=== PATIENT | male | born 1965 | race Caucasian/White ===

== ENCOUNTER 2024-06-28 06:04 | Day surgery (SDC) | payer BC ==
[~2024-06-28] VITALS: Ht 182.9 cm; Wt 121.7 kg
[~2024-06-28 06:04] MED LIST: Robaxin750 MG PO
[2024-06-28] MEDS ORDERED: Tranexamic Acid 100 ML IV ONE (06:15)
[2024-06-28] MEDS ORDERED: CeFAZolin Sodium 2,000 MG VIAL ONE (06:16)
[2024-06-28] MEDS ORDERED: CeFAZolin Sodium 3,000 MG in NS 100 ML IV SCH (06:25)
[2024-06-28] MEDS ORDERED: ATOR40TA (06:28)
[2024-06-28] MEDS ORDERED: NEURONTIN300 MG PO (06:28)
[2024-06-28] MEDS ORDERED: FARXIGA10 MG PO (06:29)
[2024-06-28] MEDS ORDERED: CHLO25B PO (06:29)
[2024-06-28] MEDS ORDERED: ESCI20 PO (06:29)
[2024-06-28] MEDS ORDERED: IRBESARTAN300 M3 PO (06:29)
[2024-06-28] MEDS ORDERED: LAMICTAL200 MG PO (06:29)
[2024-06-28] MEDS ORDERED: Aspir 8181 MG PO (06:30)
[2024-06-28] MEDS ORDERED: OXYCODONE-ACET1 EAC3 PO (06:30)
[2024-06-28] MEDS ORDERED: NOVOLOG100 UNIT/2 INJ (06:31)
--- NOTE | 2024-06-28 06:41 | NUR ---
06/28/24 0641 Kim Mark INSULIN PUMP TAPED ON LEFT ABDOMEN, CONNECTS TO PHONE, PHONE ON AIRPLANE MODE. PT NEEDED GLUCOSE TABS AT 0545 FOR LOW BLOOD SUGAR,73. AT 0630 PER PT IT WAS 155. SPINAL CORD STIMULATOR ON LEFT LOWER BACK
[2024-06-28] MEDS ORDERED: Lactated Ringer's 1,000 ML IV ONE ×2 (06:57→11:05)
[2024-06-28] MEDS ORDERED: FentaNYL Citrate 50 MCG/ML 2 ML Injection ONE (07:04)
[2024-06-28] MEDS ORDERED: Rocuronium Bromide 10 MG/ML 5ML Injection IV ONE (07:04)
[2024-06-28] MEDS ORDERED: Phenylephrine HCl 100 MCG/ML-NS 10MLSYR (1MG/10ML) ONE (07:04)
[2024-06-28] MEDS ORDERED: Midazolam HCl 1MG / ML 2ML Vial ONE (07:04)
[2024-06-28] MEDS ORDERED: propofoL 20 ML IV ONE ×2 (07:04→07:41)
[2024-06-28] MEDS ORDERED: Dexamethasone Sod Phos 10 MG/ML 1ML VIAL ONE (07:04)
[2024-06-28] MEDS ORDERED: Ondansetron HCl 2 MG / ML 2ML Vial ONE (07:04)
[2024-06-28] MEDS ORDERED: Lidocaine 1%-Epineph 1:100000 20 ML MDV INJ ONE (08:07)
[2024-06-28] MEDS ORDERED: HYDROmorphone HCl/Pf 1MG SYR ONE ×3 (08:13→10:21)
--- NOTE | 2024-06-28 08:15 | NUR ---
06/28/24 0814 Petrona Culver NOTED OPEN AREAS TOPTS SKIN FROM PEROP HAIR REMOVAL, NOTED SCABS TO PTS RIGHT FOREARM, DR PIERRE AWARE
[2024-06-28] MEDS ORDERED: Glycopyrrolate 0.2 MG/ML 5ML VIAL ONE (09:08)
[2024-06-28] MEDS ORDERED: Sugammadex Sodium 200 MG/2ML SDV (100 MG/ML) ONE (09:15)
[2024-06-28 10:45] VITALS: BP 164/88
[2024-06-28] MEDS ORDERED: OxyCODONE HCL 5 MG TAB ONE (10:46)
== END 2024-06-28 11:06 | disposition home or self-care (01) ==
LOC: ORSCSDS 06:04
PROVIDERS: Orthopaedic Surgery Sports Medicine
PROC: 0RNJ4ZZ Release Right Shoulder Joint, Percutaneous Endoscopic Approach (ICD-10-PCS; principal; 2024-06-28 07:30)
PROC: 0LQ14ZZ Repair Right Shoulder Tendon, Percutaneous Endoscopic Approach (ICD-10-PCS; principal; 2024-06-28 07:30)
DX: M25.511 Pain in right shoulder (principal); Z79.82 Long term (current) use of aspirin; I10 Essential (primary) hypertension; G47.33 Obstructive sleep apnea (adult) (pediatric); E10.21 Type 1 diabetes mellitus with diabetic nephropathy; E66.9 Obesity, unspecified; Z68.36 Body mass index [BMI] 36.0-36.9, adult; F17.210 Nicotine dependence, cigarettes, uncomplicated; Z79.4 Long term (current) use of insulin; Z79.899 Other long term (current) drug therapy
CPT/HCPCS: 82947; A9270; C1713; J0690; J1100; J1171; J2250; J2371; J2405; J2704; J3010

== ENCOUNTER 2024-10-14 19:26 | Observation (INO) | payer BC ==
[~2024-10-14] VITALS: Ht 182.9 cm; Wt 121.8 kg
[~2024-10-14 19:26] MED LIST changes: +ATOR40TA PO; +Aspir 8181 MG PO; +CHLO25B PO; +ESCI20 PO; +FARXIGA10 MG PO; +IRBESARTAN300 M3 PO; +LAMICTAL200 MG PO; +NEURONTIN300 MG PO; +NOVOLOG100 UNIT/2 INJ; +OXYCODONE-ACET1 EAC3 PO
[2024-10-14 19:49] LABS: BASOPHILS ABSOLUTE AUTO 0.09 K/mm3 (0.00-0.23); BASOPHILS PERCENT AUTO 1 % (0-2); EOSINOPHILS ABSOLUTE AUTO 0.25 K/mm3 (0.00-0.68); EOSINOPHILS PERCENT AUTO 3 % (0-6); Hematocrit 48.8 % (37.0-53.0); Hemoglobin 16.5 g/dL (13.5-17.5); IMMATURE GRAN ABSOLUTE AUTO 0.02 K/mm3 (0.00-0.10); IMMATURE GRAN PERCENT AUTO 0 % (0-1); LYMPHOCYTES ABSOLUTE AUTO 2.78 K/mm3 (0.84-5.20); LYMPHOCYTES PERCENT AUTO 31 % (21-46); MONOCYTES ABSOLUTE AUTO 0.89 K/mm3 (0.16-1.47); MONOCYTES PERCENT AUTO 10 % (4-13); Mean Corpuscular HGB 29.2 pg (26.0-34.0); Mean Corpuscular HGB Conc 33.8 g/dL (31.5-36.5); Mean Corpuscular Volume 86 fL (80-100); Mean Platelet Volume 10.6 fL (9.1-12.4); NEUTROPHILS PERCENT AUTO 55 % (41-73); Platelet Count 183 K/mm3 (150-400); RDW Coefficient Variation 13.6 % (11.7-14.2); RDW Standard Deviation 43.6 fL (35.1-46.3); Red Blood Cell Count 5.66 M/mm3 (4.30-5.90); White Blood Cell Count 9.03 K/mm3 (4.00-11.30)
[2024-10-14 20:15] LABS: Albumin/Globulin Ratio 1.2 (0.8-1.8); Bilirubin, Total 0.5 mg/dL (0.1-1.0); Bun/Creatinine Ratio 26.8 (12.0-20.0); Calcium, Blood 8.7 mg/dL (8.5-10.1); Creatinine, Blood 1.38 mg/dL (0.60-1.20); Globulin, Blood 3.4 g/dL (2.2-4.0); Potassium, Blood 3.7 mmol/L (3.5-5.5); Total Protein, Blood 7.4 g/dL (6.4-8.2)
[2024-10-14] MEDS ORDERED: Ondansetron HCl 2 MG / ML 2ML Vial IV ONE (22:10)
[2024-10-14] MEDS ORDERED: FentaNYL Citrate 50 MCG/ML 2 ML Injection IV ONE (22:10)
[2024-10-14] MEDS ORDERED: Clopidogrel Bisulfate 75 MG Tab PO ONE (23:25)
[2024-10-14] MEDS ORDERED: Morphine Sulfate 4 MG/1 ML Injection IV ONE (23:25)
[2024-10-14] MEDS ORDERED: Ondansetron 4 MG TAB PO PRN (23:45)
[2024-10-15] MEDS ORDERED: Aspirin 81 MG TabEC PO SCH (00:14)
[2024-10-15] MEDS ORDERED: FentaNYL Citrate 50 MCG/ML 2 ML Injection IV PRN (00:30)
[2024-10-15 01:35] VITALS: BP 138/85
--- NOTE | 2024-10-15 02:51 | NUR ---
ADMIT NOTE FOR 10/15/24 0130 REPORT WAS RECEIVED FROM THE ER NURSE. PT WAS BROUGHT DOWN ON THE GURNEY AND WAS ABLE TO STAND AND TRANSFER TO THE BED. PT WAS ORIENTED TO ROOM AND STAFF. PT ALERT ORIENTED ABLE TO VERBALIZE NEEDS. GETS UP AD MIKY IN THE ROOM AND AMBULATES TO THE BATHROOM. NEURO CHECKS ARE GOOD EXCEPT THAT HE HAS LT FACIAL DROOP. NO FACIAL NUMBNESS AT THIS TIME. SPEECH IS GOOD. HE DID STATE THAT HIS SPEECH DOES GET WORSE TIME GOES BY. HE DID A BEDSIDE SWALLOW EVAL AND HAD NO PROBLEMS WITH SWALLOWING. REMAINS ON A CONTINUOUS PULSE OX SATTING AT 94% ON RA. VSS. HES RESTING IN BED AT THIS TIME WITH CALL LIGHT IN REACH
[2024-10-15 04:19] VITALS: BP 119/77
--- NOTE | 2024-10-15 04:44 | NUR ---
SHIFT SUMMARY PT WAS ADMITTED FROM THE ER AT 0130 WITH DX OF CVA R/O. HES ALERT ORIENTED X4 ABLE TO VERBALIZE NEEDS CALLS APPROPRIATELY. C/O HEADACHE MEDICATED WITH FENTANYL WITH GOOD RELIEF. HE REMAINS NPO BUT DID PASS HIS BEDSIDE SWALLOW TEST SO HES DRINKING WATER WITH NO PROBLEMS SWALLOWING. REMAINS ON TELEMTERY AT [facility] AT 68. HIS NEURO CHECKS ARE GOOD EXCEPT HIS LT SIDE FACIAL DROOP. HE REMAINS ON A CONTINUOUS PULSE OX. HE WEARS A CPAP AT NIGHT AT HOME BUT HE DIDNT BRING IT IN. FS DONE Q6HR. HE AMBULATES AD MIKY IN HIS ROOM WITH NO PROBLEMS. RESTING IN BED AT THIS TIME WITH CALL LIGHT IN REACH
[2024-10-15] MEDS ORDERED: Insulin Regular 100 UNIT/ML 10ML Vial SC SCH (06:00)
[2024-10-15 06:02] LABS: International Normalized Ratio 0.96; Prothrombin Time Results 10.3 Sec (9.7-11.5)
[2024-10-15 06:14] LABS: Calcium, Blood 8.5 mg/dL (8.5-10.1); Creatinine, Blood 1.03 mg/dL (0.60-1.20); Potassium, Blood 3.8 mmol/L (3.5-5.5)
[2024-10-15 06:27] LABS: Free Thyroxine 1.08 ng/dL (0.70-1.60)
[2024-10-15 06:29] LABS: Thyroid Stimulating Hormone 2.9 uIU/mL (0.360-4.800)
[2024-10-15 07:08] VITALS: BP 140/78
[2024-10-15] MEDS ORDERED: Enoxaparin 40 MG/0.4 ML SYR SC SCH (09:00)
[2024-10-15] MEDS ORDERED: Atorvastatin 40 MG Tab PO SCH (09:00)
[2024-10-15] MEDS ORDERED: Misc. Tablet PO SCH (09:00)
[2024-10-15] MEDS ORDERED: Clopidogrel Bisulfate 75 MG Tab PO SCH (09:00)
[2024-10-15] MEDS ORDERED: LamoTRIgine 100 MG Tab PO SCH (09:00)
[2024-10-15] MEDS ORDERED: Citalopram Hydrobromide 20 MG Tab PO SCH (09:00)
[2024-10-15] MEDS ORDERED: Morphine Sulfate 10 MG/ML 1MLSYR IV PRN (10:20)
[2024-10-15 12:17] VITALS: BP 136/86
[2024-10-15] MEDS ORDERED: Peg 400/Hypromellose/Glycerin 15 DROP/ML BTL LEFTEYE PRN (15:50)
--- NOTE | 2024-10-15 15:59 | NUR ---
PT HEADACHE UNRESOVED BY CURRENT MEDICATION REGIMEN. PT GIVEN 5 MG MORPHINE IV. WITH NO RELIEF. DR. MAK NOTIFIED. AWAITING ORDERS
--- NOTE | 2024-10-15 16:08 | NUR ---
NO CHANGES IN PT NEURO STATUS THIS SHIFT. PT HAS LEFT SIDE FACIAL DROOP, UNABLE TO CLOSE LEFT EYE UNABLE TO TASTE AND SMELL. HEADACHE REMAINS 8/10 PAIN. MD AWARE. STRENGTH EQUAL IN BUE/BLE. INDEPENDENT IN THE ROOM, ABLE TO EXPRESS NEEDS, EYE DROPS ORDERED FOR LEFT EYE, PT GIVEN EYE PATCH TO USE NEEDED. NEURO CHECKS Q 4HRS.
[2024-10-15] MEDS ORDERED: HYDROmorphone HCl 0.5 MG/0.5 ML SYR IV PRN (16:10)
[2024-10-15 16:29] VITALS: BP 128/82
--- NOTE | 2024-10-15 17:30 | NUR ---
PT TREATED WITH DILAUDID 1MG IV. PT REPORTS RELIEF IN HEADACHE PAIN.
[2024-10-15 22:01] VITALS: BP 139/76
[2024-10-16 00:16] VITALS: BP 136/82
[2024-10-16] MEDS ORDERED: Albuterol 2.5 MG/3 ML VIAL INH PRN (01:40)
--- NOTE | 2024-10-16 03:42 | NUR ---
SHIFT SUMMARY PT ALERT ORIENTED ABLE TO VERBALIZE NEEDS GETS UP AD MIKY IN HIS ROOM. HE REMAINS WITH LT SIDE FACIAL DROOP AND HAS A HARD TIME CLOSING HIS LT EYE. HE C/O HEADACHE MEDICATED WITH DILAUDID WITH GOOD RESULTS. HE WAS C/O FEELING WHEEZY.FS DONE Q6HR WAS 136. NO COVERAGE WAS NEEDED. HE HAS HIS OWN INSULIN PUMP. CONTINUES ON A CONINUOUS PULSE OX SATTING AROUND 93% ON RA. HE HAS A ORDERED TO HAVE A ECHO DONE IN THE MORNING. RESTING IN BED AT THIS TIME WITH CALL LIGHT IN REACH
[2024-10-16 04:54] VITALS: BP 127/80
[2024-10-16 05:27] LABS: BASOPHILS PERCENT AUTO 1 % (0-2); EOSINOPHILS ABSOLUTE AUTO 0.26 K/mm3 (0.00-0.68); EOSINOPHILS PERCENT AUTO 3 % (0-6); Hematocrit 46.3 % (37.0-53.0); Hemoglobin 15.8 g/dL (13.5-17.5); IMMATURE GRAN ABSOLUTE AUTO 0.03 K/mm3 (0.00-0.10); IMMATURE GRAN PERCENT AUTO 0 % (0-1); LYMPHOCYTES ABSOLUTE AUTO 2.59 K/mm3 (0.84-5.20); LYMPHOCYTES PERCENT AUTO 34 % (21-46); MONOCYTES ABSOLUTE AUTO 0.75 K/mm3 (0.16-1.47); MONOCYTES PERCENT AUTO 10 % (4-13); Mean Corpuscular HGB 29.4 pg (26.0-34.0); Mean Corpuscular HGB Conc 34.1 g/dL (31.5-36.5); Mean Corpuscular Volume 86 fL (80-100); Mean Platelet Volume 10.9 fL (9.1-12.4); NEUTROPHILS ABSOLUTE AUTO 3.91 K/mm3 (1.96-9.15); NEUTROPHILS PERCENT AUTO 51 % (41-73); Platelet Count 166 K/mm3 (150-400); RDW Coefficient Variation 13.6 % (11.7-14.2); Red Blood Cell Count 5.37 M/mm3 (4.30-5.90); White Blood Cell Count 7.64 K/mm3 (4.00-11.30)
[2024-10-16 06:13] LABS: Albumin, Blood 3.7 g/dL (3.4-5.0); Albumin/Globulin Ratio 1.2 (0.8-1.8); Bilirubin, Total 0.7 mg/dL (0.1-1.0); Bun/Creatinine Ratio 28.2 (12.0-20.0); Calcium, Blood 8.7 mg/dL (8.5-10.1); Creatinine, Blood 1.03 mg/dL (0.60-1.20); Globulin, Blood 3.2 g/dL (2.2-4.0); Potassium, Blood 3.6 mmol/L (3.5-5.5); Total Protein, Blood 6.9 g/dL (6.4-8.2)
[2024-10-16 07:38] VITALS: BP 131/78
[2024-10-16] MEDS ORDERED: ARTIFICIAL TEAR15 M6 LEFTEYE (10:37)
[2024-10-16] MEDS ORDERED: PRED20 PO (10:37)
[2024-10-16] MEDS ORDERED: Gabapentin 300 MG Cap PO PRN (11:00)
[2024-10-16] MEDS ORDERED: Gabapentin 300 MG Cap PO ONE (11:00)
[2024-10-16] MEDS ORDERED: PredniSONE 20 MG Tab PO SCH (11:00)
[2024-10-16] MEDS ORDERED: HYDMOR2 PO (12:43)
--- NOTE | 2024-10-16 12:52 | NUR ---
PT DISCHARGED HOME. DISCHARGE INSTRUCTIONS DISCUSSED WITH PT. PT TO FOLLOW UP WITH PCP NEXT WEEK. NO QUESTIONS OR CONCERNS AT DISCHARGE
== END 2024-10-16 12:44 | disposition home or self-care (01) ==
LOC: ER 19:26 → MEDS 19:27
PROVIDERS: Hospitalist; Student in an Organized Health Care Education/Training Program; ADMIT Student in an Organized Health Care Education/Training Program
DX: I63.9 Cerebral infarction, unspecified (principal); R29.810 Facial weakness; R47.1 Dysarthria and anarthria; R29.704 NIHSS score 4; I10 Essential (primary) hypertension; E78.00 Pure hypercholesterolemia, unspecified; E10.9 Type 1 diabetes mellitus without complications; F17.210 Nicotine dependence, cigarettes, uncomplicated; Z79.899 Other long term (current) drug therapy; Z88.5 Allergy status to narcotic agent; Z88.1 Allergy status to other antibiotic agents; Z88.6 Allergy status to analgesic agent; Z96.82 Presence of neurostimulator
CPT/HCPCS: 36415; 70450; 70496; 70498; 80048; 80053; 82947; 84439; 84443; 85025; 85610; 85651; 92610; 93005; 93010; 94640; 94664; 94762; 96374; 96375; 96376; 97112; 97161; 99285-25; A9270; C8929; G0378; J1171; J2270; J2405; J3010; J7512; Q9957; Q9967

== ENCOUNTER → 2024-11-29 | Outpatient (CLI) | payer BC ==
[~2024-11-29] MED LIST changes: +ARTIFICIAL TEAR15 M6 LEFTEYE; +HYDMOR2 PO; +PRED20 PO
== END ==
LOC: LAB 07:19 → LAB SHORT 07:19
DX: B35.1 Tinea unguium (principal); L60.5 Yellow nail syndrome
CPT/HCPCS: 88305; 88312